=== PATIENT | female | born 1950 | race Caucasian/White ===

== ENCOUNTER 2018-03-27 12:20 | Emergency (ER) | payer MEDICARE, BC ==
[2018-03-27] MEDS ORDERED: Aspirin 81 MG Tab.Chew PO ONE (12:31)
--- NOTE | 2018-03-27 12:59 | CR ---
CHEST: Portable CLINICAL HISTORY:Shortness of breath COMPARISON:2015 FINDINGS: Heart size is upper limits of normal. There is pulmonary vascular cephalization. There is some interstitial prominence. There are streaky densities in both infrahilar regions which may repres ent some streaky atelectasis or scarring. IMPRESSION: Vascular cephalization and prominent lung markings suggest mild CHF Borderline cardiomegaly
[2018-03-27] MEDS ORDERED: Furosemide 40 MG/4 ML VIAL IVPUSH ONE (13:20)
--- NOTE | 2018-03-27 13:26 | EDM.PDOC ---
ED HPI GENERAL MEDICAL PROBLEM - General Chief Complaint: Chest Pain Stated Complaint: TROUBLE BREATHING Time Seen by Provider: 03/27/18 12:30 Source of Information: Reports: Patient History Limitations: Reports: No Limitations - History of Present Illness INITIAL COMMENTS - FREE TEXT/NARRATIVE: Pt arrived with increased sob. She woke up in the nite and felt like she was not able to breath. She has not noted an increased ankle swelling. She is on dyazide for bp and increased fluid retention. Onset: Today, Sudden, Other ( sudden episode of sob. ) Duration: Hour(s): Location: Reports: Chest Associated Symptoms: Reports: Shortness of Breath, Other (pt has chest tightness ) Chest Pain Score (Numeric/FACES): 6 - Related Data Allergies Allergy/AdvReac Type Severity Reaction Status Date / Time clindamycin Allergy Diarrhea Verified 03/27/18 12:30 erythromycin lactobionate Allergy Diarrhea Verified 03/27/18 12:30 [From Erythrocin] Home Meds: Home Meds Aspirin [Zack Chewable Aspirin] 81 mg PO DAILY 05/13/14 [History] Cholecalciferol (Vitamin D3) [Vitamin D3] 5,000 unit PO DAILY 05/13/14 [History] Cyanocobalamin (Vitamin B-12) [Vitamin B-12] 1,000 mcg PO DAILY 05/13/14 [ History] Cyclobenzaprine [Flexeril] 10 mg PO BID 05/13/14 [History] Losartan [Cozaar] 25 mg PO BID 05/13/14 [History] Magnesium 250 mg PO DAILY 05/13/14 [History] Multivit-Min/FA/Lycopene/Lut [Centrum Silver] 1 tab PO DAILY 05/13/14 [History] Sertraline [Zoloft] 100 mg PO DAILY 05/13/14 [History] Simvastatin [Zocor] 20 mg PO BEDTIME 05/13/14 [History] Triamterene/Hydrochlorothiazid [Dyazide 37.5-25] 1 cap PO DAILY 05/13/14 [ History] Zolpidem [Ambien] 10 mg PO BEDTIME PRN 05/13/14 [History] Amitriptyline [Elavil] 25 mg PO BEDTIME 08/16/15 [History] Budesonide [Budesonide EC] 3 mg PO TID PRN 08/17/15 [History] Metoprolol Tartrate [Lopressor] 1 tab PO BID 03/27/18 [History] Past Medical History HEENT History: Reports: Impaired Vision Cardiovascular History: Reports: Arrhythmia, Cardiomyopathy, High Cholesterol, Hypertension Respiratory History: Reports: Sleep Apnea 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 Oncologic Surgical History: Reports: Lumpectomy Social & Family History - Tobacco Use Smoking Status *Q: Never Smoker - Recreational Drug Use Recreational Drug Use: No ED ROS GENERAL - Review of Systems Review Of Systems: See Below Constitutional: Reports: No Symptoms HEENT: Reports: No Symptoms Respiratory: Reports: Shortness of Breath, Cough Cardiovascular: Reports: Other (Pt has chest tightness. ) Endocrine: Reports: No Symptoms GI/Abdominal: Reports: No Symptoms : Reports: No Symptoms Musculoskeletal: Reports: No Symptoms Skin: Reports: No Symptoms ED EXAM, GENERAL - Physical Exam Exam: See Below Free Text/Narrative:: pt arrived with a history of being very sob at 2 thirty am and she was not able to rest the rest of the nite. Exam Limited By: No Limitations General Appearance: Alert, Anxious, Mild Distress, Other (pt did have chest tightness. ) Ears: Normal TMs Nose: Normal Inspection Throat/Mouth: Normal Inspection Head: Atraumatic Neck: Normal Inspection Respiratory/Chest: Decreased Breath Sounds, Crackles Cardiovascular: Regular Rate, Rhythm, Other ( pt was found to have a left bundle branch block and she does not have old ekgs that could be found. ) GI/Abdominal: Soft, Non-Tender (Female) Exam: Deferred Rectal (Female) Exam: Deferred Back Exam: Normal Inspection Extremities: Other ( no sig edema. ) Neurological: Alert, Oriented, Normal Cognition Psychiatric: Normal Affect Course - Vital Signs Last Recorded V/S: Last Vital Signs Temp 37.4 C 03/27/18 12:26 Pulse 77 03/27/18 16:18 Resp 20 07/12/18 16:18 BP 144/61 H 03/27/18 16:18 Pulse Ox 98 03/27/18 16:18 - Orders/Labs/Meds Labs: Laboratory Tests 03/27/18 03/27/18 03/27/18 Range/Units 12:29 12:46 12:46 WBC 9.9 (4.5-11.0) K/uL RBC 4.28 (3.30-5.50) M/uL Hgb 12.4 D (12.0-15.0) g/dL Hct 39.2 (36.0-48.0) % MCV 92 (80-98) fL MCH 29 (27-31) pg MCHC 32 (32-36) % Plt Count 285 (150-400) K/uL Neut % (Auto) 75 H (36-66) % Lymph % (Auto) 13 L (24-44) % [place] % (Auto) 11 H (2-6) % Eos % (Auto) 1 L (2-4) % Baso % (Auto) 0 (0-1) % Sodium 138 L (140-148) mmol/L Potassium 3.9 (3.6-5.2) mmol/L Chloride 103 (100-108) mmol/L Carbon Dioxide 28 (21-32) mmol/L Anion Gap 10.9 (5.0-14.0) mmol/L BUN 15 (7-18) mg/dL Creatinine 1.1 H (0.6-1.0) mg/dL Est Cr Clr Drug Dosing 48.69 mL/min Estimated GFR (MDRD) 49 L (>60) Glucose 111 H (74-106) mg/dL Calcium 8.9 (8.5-10.1) mg/dL Total Bilirubin 0.6 (0.2-1.0) mg/dL AST 30 (15-37) U/L ALT 39 (12-78) U/L Alkaline Phosphatase 86 (46-116) U/L Troponin I (0.000-0.056) ng/mL NT-Pro-B Natriuret Pep (5-125) pg/mL Total Protein 6.9 (6.4-8.2) g/dL Albumin 3.5 (3.4-5.0) g/dL Globulin 3.4 (2.3-3.5) g/dL Albumin/Globulin Ratio 1.0 L (1.2-2.2) Urine Color Yellow Urine Appearance Clear Urine pH 8.0 (4.5-8.0) Ur Specific [place] 1.015 (1.008-1.030) Urine Protein Negative (NEGATIVE) mg/dL Urine Glucose (UA) Normal (NEGATIVE) mg/dL Urine Ketones Negative (NEGATIVE) mg/dL Urine Occult Blood Negative (NEGATIVE) Urine Nitrite Negative (NEGATIVE) Urine Bilirubin Negative (NEGATIVE) Urine Urobilinogen Normal (NORMAL) mg/dL Ur Leukocyte Esterase Negative (NEGATIVE) Urine RBC Not seen (0-5) Urine WBC 0-5 (0-5) Ur Epithelial Cells Few Amorphous Sediment Not seen Urine Bacteria Few Urine Mucus Not seen 03/27/18 03/27/18 03/27/18 Range/Units 12:46 12:46 15:06 WBC (4.5-11.0) K/uL RBC (3.30-5.50) M/uL Hgb (12.0-15.0) g/dL Hct (36.0-48.0) % MCV (80-98) fL MCH (27-31) pg MCHC (32-36) % Plt Count (150-400) K/uL Neut % (Auto) (36-66) % Lymph % (Auto) (24-44) % [place] % (Auto) (2-6) % Eos % (Auto) (2-4) % Baso % (Auto) (0-1) % Sodium (140-148) mmol/L Potassium (3.6-5.2) mmol/L Chloride (100-108) mmol/L Carbon Dioxide (21-32) mmol/L Anion Gap (5.0-14.0) mmol/L BUN (7-18) mg/dL Creatinine (0.6-1.0) mg/dL Est Cr Clr Drug Dosing mL/min Estimated GFR (MDRD) (>60) Glucose (74-106) mg/dL Calcium (8.5-10.1) mg/dL Total Bilirubin (0.2-1.0) mg/dL AST (15-37) U/L ALT (12-78) U/L Alkaline Phosphatase (46-116) U/L Troponin I < 0.017 < 0.017 (0.000-0.056) ng/mL NT-Pro-B Natriuret Pep 2803 H (5-125) pg/mL Total Protein (6.4-8.2) g/dL Albumin (3.4-5.0) g/dL Globulin (2.3-3.5) g/dL Albumin/Globulin Ratio (1.2-2.2) Urine Color Urine Appearance Urine pH (4.5-8.0) Ur Specific [place] (1.008-1.030) Urine Protein (NEGATIVE) mg/dL Urine Glucose (UA) (NEGATIVE) mg/dL Urine Ketones (NEGATIVE) mg/dL Urine Occult Blood (NEGATIVE) Urine Nitrite (NEGATIVE) Urine Bilirubin (NEGATIVE) Urine Urobilinogen (NORMAL) mg/dL Ur Leukocyte Esterase (NEGATIVE) Urine RBC (0-5) Urine WBC (0-5) Ur Epithelial Cells Amorphous Sediment Urine Bacteria Urine Mucus Meds: Medications Discontinued Medications Generic Name Dose Route Start Last Admin Trade Name Freq PRN Reason Stop Dose Admin Aspirin 243 mg 03/27/18 12:31 03/27/18 12:46 Aspirin PO 03/27/18 12:32 243 mg ONETIME ONE Administration Furosemide 60 mg 03/27/18 13:20 03/27/18 13:33 Lasix IVPUSH 03/27/18 13:21 60 mg ONETIME ONE Administration - Re-Assessments/Exams Free Text/Narrative Re-Assessment/Exam: 03/27/18 15:10 Pt was found to have a very high bnp . Her trop was normal. Her chest xray revealed chf. She was given lasix 60mg iv and she has put out nearly 1000 cc of fluid. She is feeling better with her breathing and the tightness is gone. 03/29/18 07:58 pt did have a second trop that was neg. Departure - Departure Time of Disposition: 16:18 Disposition: Home, Self-Care 01 Condition: Fair Clinical Impression: CHF (congestive heart failure) - Discharge Information Instructions: Heart Failure, [id number] Referrals: Luanne Lua MD [Primary Care Provider] - Forms: ED Department Discharge Care Plan Goals: appt with Dr Burns Sat or saturday, stop dyazide. Start lasix 40mg daily, rtc if problems, rtc Saturday fo an echo and appt with Dr Jones on saturday. high k diet.
[2018-03-27 16:19] VITALS: BP 144/61
== END 2018-03-27 16:36 | disposition home or self-care (01) ==
LOC: JP.ED 12:20
DX: I11.0 Hypertensive heart disease with heart failure (principal); I50.9 Heart failure, unspecified; E78.00 Pure hypercholesterolemia, unspecified; F32.9 Major depressive disorder, single episode, unspecified; Z79.899 Other long term (current) drug therapy; Z88.1 Allergy status to other antibiotic agents; Z79.82 Long term (current) use of aspirin
CPT/HCPCS: 36415; 71045; 80053; 81001; 83880; 84484; 85025; 93005; 99285; A9270; J1940

== ENCOUNTER 2018-03-31 08:23 | Emergency (ER) | payer MEDICARE, BC ==
[2018-03-31 08:40] VITALS: BP 123/51
--- NOTE | 2018-03-31 09:23 | EDM.PDOC ---
ED HPI GENERAL MEDICAL PROBLEM - General Chief Complaint: Respiratory Problem Stated Complaint: TROUBLE BREATHING Time Seen by Provider: 03/31/18 09:10 Source of Information: Reports: Patient, Family, Old Records, RN History Limitations: Reports: No Limitations - History of Present Illness INITIAL COMMENTS - FREE TEXT/NARRATIVE: 68 yo female was seen here last after a fairly abrupt onset at 0300h that day of SOB. States she was not SOB before that. Denies fever, wheezing, or chest pain. Does not have orthopnea. Slept fine in a supine position last night. Had an ECHO this am and does not have the results. Can't get in to see her doctor until this next Saturday. When seen in the ER last week she had her HCTZ stopped and furosemide substituted. She thinks this change helped a little transiently, but is now as bad as she was that day. 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 (see below) (Has not taken her furosemide yet today.) - Related Data Allergies Allergy/AdvReac Type Severity Reaction Status Date / Time clindamycin Allergy Diarrhea Verified 03/27/18 12:30 erythromycin lactobionate Allergy Diarrhea Verified 03/27/18 12:30 [From Erythrocin] Home Meds: Home Meds Aspirin [Zack Chewable Aspirin] 81 mg PO DAILY 05/13/14 [History] Cholecalciferol (Vitamin D3) [Vitamin D3] 5,000 unit PO DAILY 05/13/14 [History] Cyanocobalamin (Vitamin B-12) [Vitamin B-12] 1,000 mcg PO DAILY 05/13/14 [ History] Cyclobenzaprine [Flexeril] 10 mg PO BID 05/13/14 [History] Losartan [Cozaar] 25 mg PO BID 05/13/14 [History] Magnesium 250 mg PO DAILY 05/13/14 [History] Multivit-Min/FA/Lycopene/Lut [Centrum Silver] 1 tab PO DAILY 05/13/14 [History] Sertraline [Zoloft] 100 mg PO DAILY 05/13/14 [History] Simvastatin [Zocor] 20 mg PO BEDTIME 05/13/14 [History] Triamterene/Hydrochlorothiazid [Dyazide 37.5-25] 1 cap PO DAILY 05/13/14 [ History] Zolpidem [Ambien] 10 mg PO BEDTIME PRN 05/13/14 [History] Amitriptyline [Elavil] 25 mg PO BEDTIME 08/16/15 [History] Budesonide [Budesonide EC] 3 mg PO TID PRN 08/17/15 [History] Metoprolol Tartrate [Lopressor] 1 tab PO BID 03/27/18 [History] Past Medical History HEENT History: Reports: Impaired Vision Cardiovascular History: Reports: Arrhythmia, Cardiomyopathy, High Cholesterol, Hypertension Respiratory History: Reports: Sleep Apnea 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 Oncologic Surgical History: Reports: Lumpectomy Social & Family History - Family History Cardiac: Reports: [place], Other (See Below) Other Cardiac Family History: heart surgeries - dad & brother - Tobacco Use Smoking Status *Q: Never Smoker Second Hand Smoke Exposure: No - Caffeine Use Caffeine Use: Reports: Coffee - Recreational Drug Use Recreational Drug Use: No ED ROS GENERAL - Review of Systems Review Of Systems: See Below Constitutional: Reports: No Symptoms HEENT: Reports: No Symptoms Respiratory: Reports: Shortness of Breath. Denies: Wheezing, Pleuritic Chest Pain, Cough, Sputum, Hemoptysis Cardiovascular: Reports: No Symptoms GI/Abdominal: Reports: No Symptoms : Reports: No Symptoms Musculoskeletal: Reports: No Symptoms Skin: Reports: No Symptoms Neurological: Reports: No Symptoms ED EXAM, GENERAL - Physical Exam Exam: See Below Exam Limited By: No Limitations General Appearance: Alert, WD/WN, No Apparent Distress Eye Exam: Bilateral Eye: Normal Inspection Ears: Normal External Exam, Normal Canal, Hearing Grossly Normal Ear Exam: Bilateral Ear: Auricle Normal, Canal Normal Nose: Normal Inspection, Normal Mucosa, No Blood Throat/Mouth: Normal Inspection, Normal Lips, Normal Oropharynx, Normal Voice, No Airway Compromise Head: Atraumatic, Normocephalic Neck: Normal Inspection Respiratory/Chest: No Respiratory Distress, Lungs Clear, Normal Breath Sounds, No Accessory Muscle Use Cardiovascular: Regular Rate, Rhythm, No Edema, No Murmur Back Exam: Normal Inspection. No: CVA Tenderness (R), CVA Tenderness (L) Extremities: Normal Inspection, Normal Range of Motion, Non-Tender, No Pedal Edema Neurological: Alert, Oriented, CN II-XII Intact, Normal Cognition, No Motor/ Sensory Deficits Psychiatric: Normal Affect, Normal Mood Skin Exam: Warm, Dry, Intact, Normal Color Lymphatic: No Adenopathy Course - Vital Signs Text/Narrative:: peak flow pre neb tx in the low 200's only, peak flow after neb was unchanged. Last Recorded V/S: Last Vital Signs Temp 36.3 C 03/31/18 08:44 Pulse 77 03/31/18 10:30 Resp 24 H 03/31/18 08:44 BP 123/51 L 03/31/18 08:44 Pulse Ox 91 L 03/31/18 10:30 - Orders/Labs/Meds Orders: Active Orders 24 hr Category Date Time Status RT Aerosol Therapy [RC] ASDIRECTED Care 03/31/18 10:22 Active RT Peak Flow Measurement [RC] ASDIRECTED Care 03/31/18 10:06 Active Labs: Laboratory Tests 03/31/18 03/31/18 03/31/18 Range/Units 09:30 09:30 09:30 WBC 7.1 (4.5-11.0) K/uL RBC 4.33 (3.30-5.50) M/uL Hgb 12.4 (12.0-15.0) g/dL Hct 39.7 (36.0-48.0) % MCV 92 (80-98) fL MCH 29 (27-31) pg MCHC 31 L (32-36) % Plt Count 323 (150-400) K/uL D-Dimer, Quantitative 246 (0.0-400.0) ng/mL Sodium (140-148) mmol/L Potassium (3.6-5.2) mmol/L Chloride (100-108) mmol/L Carbon Dioxide (21-32) mmol/L Anion Gap (5.0-14.0) mmol/L BUN (7-18) mg/dL Creatinine (0.6-1.0) mg/dL Est Cr Clr Drug Dosing mL/min Estimated GFR (MDRD) (>60) Glucose (74-106) mg/dL Calcium (8.5-10.1) mg/dL NT-Pro-B Natriuret Pep 1715 H (5-125) pg/mL 03/31/18 Range/Units 10:03 WBC (4.5-11.0) K/uL RBC (3.30-5.50) M/uL Hgb (12.0-15.0) g/dL Hct (36.0-48.0) % MCV (80-98) fL MCH (27-31) pg MCHC (32-36) % Plt Count (150-400) K/uL D-Dimer, Quantitative (0.0-400.0) ng/mL Sodium 138 L (140-148) mmol/L Potassium 4.1 (3.6-5.2) mmol/L Chloride 102 (100-108) mmol/L Carbon Dioxide 28 (21-32) mmol/L Anion Gap 12.1 (5.0-14.0) mmol/L BUN 18 (7-18) mg/dL Creatinine 1.2 H (0.6-1.0) mg/dL Est Cr Clr Drug Dosing 44.63 mL/min Estimated GFR (MDRD) 45 L (>60) Glucose 107 H (74-106) mg/dL Calcium 9.3 (8.5-10.1) mg/dL NT-Pro-B Natriuret Pep (5-125) pg/mL Meds: Medications Discontinued Medications Generic Name Dose Route Start Last Admin Trade Name Freq PRN Reason Stop Dose Admin Albuterol 2.5 mg 03/31/18 10:21 03/31/18 10:27 Proventil Neb Soln NEB 03/31/18 10:22 2.5 mg ONETIME ONE Administration Departure - Departure Time of Disposition: 10:49 Disposition: Home, Self-Care 01 Condition: Fair Clinical Impression: Dyspnea on exertion, Elevated brain natriuretic peptide (BNP) level - Discharge Information Referrals: PCP,None [Primary Care Provider] - Forms: ED Department Discharge - My Orders Last 24 Hours: My Active Orders 03/31/18 10:06 RT Peak Flow Measurement [RC] ASDIRECTED 03/31/18 10:22 RT Aerosol Therapy [RC] ASDIRECTED - Assessment/Plan Last 24 Hours: My Active Orders 03/31/18 10:06 RT Peak Flow Measurement [RC] ASDIRECTED 03/31/18 10:22 RT Aerosol Therapy [RC] ASDIRECTED
[2018-03-31] MEDS ORDERED: Albuterol 0.083% 2.5 MG/3 ML Neb Soln NEB ONE (10:21)
== END 2018-03-31 11:22 | disposition home or self-care (01) ==
LOC: JP.ED 08:23
DX: R06.09 Other forms of dyspnea (principal); R79.89 Other specified abnormal findings of blood chemistry
CPT/HCPCS: 36415; 80048; 83880; 85027; 85379; 93306; 94640; 99285-25

== ENCOUNTER 2019-03-13 14:06 | Emergency (ER) | payer MEDICARE, BC ==
--- NOTE | 2019-03-13 14:35 | EDM.PDOC ---
ED HPI GENERAL MEDICAL PROBLEM - General Stated Complaint: VIA [facility] Time Seen by Provider: 03/13/19 14:06 Source of Information: Reports: EMS, Family History Limitations: Reports: Other (Unresponsive, intubated) - History of Present Illness INITIAL COMMENTS - FREE TEXT/NARRATIVE: 69-year-old female with known congestive heart failure was seen in the emergency room 2 days ago and a workup was done and she was sent home. She was very restless overnight, slept very poorly and was short of breath so her was transferring her back up to [place], she wanted to lie down in the backseat. As they were traveling he realized she wasn't talking, noticed that she had gone unresponsive and her color looked poor. He was passing the ambulance so pulled in and they found her to be unresponsive and in asystole. CPR was initiated, aggressive measures taken including IV epinephrine, intraosseous infusions, and amiodarone. Spontaneous circulation did not resume. She arrived to the emergency room with a [place] device active. Patient appeared to becoming mottled. Onset: Other (Patient went unresponsive for approximately 1 hour and 20 minutes ago) - Related Data Allergies Allergy/AdvReac Type Severity Reaction Status Date / Time clindamycin Allergy Diarrhea Verified 03/27/18 12:30 erythromycin lactobionate Allergy Diarrhea Verified 03/27/18 12:30 [From Erythrocin] Home Meds: Home Meds Aspirin [Zack Chewable Aspirin] 81 mg PO DAILY 05/13/14 [History] Cholecalciferol (Vitamin D3) [Vitamin D3] 5,000 unit PO DAILY 05/13/14 [History] Cyanocobalamin (Vitamin B-12) [Vitamin B-12] 1,000 mcg PO DAILY 05/13/14 [ History] Cyclobenzaprine [Flexeril] 10 mg PO BID 05/13/14 [History] Losartan [Cozaar] 25 mg PO BID 05/13/14 [History] Magnesium 250 mg PO DAILY 05/13/14 [History] Multivit-Min/FA/Lycopene/Lut [Centrum Silver] 1 tab PO DAILY 05/13/14 [History] Sertraline [Zoloft] 100 mg PO DAILY 05/13/14 [History] Simvastatin [Zocor] 20 mg PO BEDTIME 05/13/14 [History] Triamterene/Hydrochlorothiazid [Dyazide 37.5-25] 1 cap PO DAILY 05/13/14 [ History] Zolpidem [Ambien] 10 mg PO BEDTIME PRN 05/13/14 [History] Amitriptyline [Elavil] 25 mg PO BEDTIME 08/16/15 [History] Budesonide [Budesonide EC] 3 mg PO TID PRN 08/17/15 [History] Metoprolol Tartrate [Lopressor] 1 tab PO BID 03/27/18 [History] Past Medical History HEENT History: Reports: Impaired Vision Cardiovascular History: Reports: Arrhythmia, Cardiomyopathy, High Cholesterol, Hypertension Respiratory History: Reports: Sleep Apnea 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 Oncologic Surgical History: Reports: Lumpectomy Social & Family History - Family History Cardiac: Reports: [place], Other (See Below) Other Cardiac Family History: heart surgeries - dad & brother - Caffeine Use Caffeine Use: Reports: Coffee ED ROS GENERAL - Review of Systems Review Of Systems: Unable To Obtain ED EXAM, CPR - Physical Exam Exam: See Below Limited By: Unresponsive, Other (Patient is intubated and unresponsive) Eye Exam: Bilateral Eye: PERRL (Pupils unreactive) Head: Atraumatic Cardiovascular: Other (A cardiac probe was placed over the heart, and there was no cardiac activity seen, valves were quiet) Course - Re-Assessments/Exams Free Text/Narrative Re-Assessment/Exam: 03/13/19 14:31 Because of over one hour of CPR, 5-10 minute down time, significant history of coronary and cardiac disease and an ultrasound showing no cardiac activity the code was called. Departure - Departure Time of Disposition: 17:20 Disposition: 20 Clinical Impression: Cardiac arrest CHF (congestive heart failure) Qualifiers: Heart failure type: combined systolic and diastolic Heart failure chronicity: unspecified Qualified Code(s): I50.40 - Unspecified combined systolic ( congestive) and diastolic (congestive) heart failure - Discharge Information Referrals: PCP,None [Primary Care Provider] - Forms: ED Department Discharge Care Plan Goals: CPR was terminated and code was called. Chief Legal Officer's office was called by the nursing staff. Critical Care Note - Critical Care Note Total Time (mins): 15
== END 2019-03-13 17:17 | disposition expired ==
LOC: JP.ED 14:06
DX: I46.9 Cardiac arrest, cause unspecified (principal); I11.0 Hypertensive heart disease with heart failure; I50.40 Unspecified combined systolic (congestive) and diastolic (congestive) heart failure; E78.00 Pure hypercholesterolemia, unspecified; Z79.899 Other long term (current) drug therapy; F32.9 Major depressive disorder, single episode, unspecified; Z88.1 Allergy status to other antibiotic agents; Z79.82 Long term (current) use of aspirin
CPT/HCPCS: 31500; 92950; 99285; 99285-25